=== PATIENT | female | born 1990 | race Caucasian/White ===

== ENCOUNTER 2017-10-11 18:02 | Emergency (ER) | payer SELFPAY ==
[~2017-10-11] VITALS: Ht 165.1 cm; Wt 97.9 kg
[~2017-10-11 18:02] MED LIST: DOXY100T PO; MOTR200T PO; ONDA1TAB16 PO; PERC10TA27 PO; ZOLO25TA PO
[2017-10-11 18:12] VITALS: PULSE 98; RESP 16; TEMP 97.8; O2SAT 99
[2017-10-11] MEDS ORDERED: METH10TA PO (18:33)
[2017-10-11] MEDS ORDERED: IBUP1TAB7 PO (18:40)
[2017-10-11] MEDS ORDERED: MAGICPED SWISH-SPIT (18:40)
[2017-10-11] MEDS ORDERED: CLIN300C5 PO (18:40)
[2017-10-11] MEDS ORDERED: CLINDAMYCIN 150 MG CAP PO ONE (18:45)
[2017-10-11] MEDS ORDERED: IBUPROFEN 800 MG TAB PO ONE (18:45)
--- NOTE | 2017-10-11 18:46 | PD ---
HPI Chief Complaint: Oral / Dental Pain or Problem Time Seen by Provider: 18:27 Travel History International Travel<30 days: No Contact w/Intl Traveler<30days: No Traveled to known affect area: No History of Present Illness HPI 26-year-old female presents emergency department for evaluation of right upper and lower tooth pain that started 3 days ago. Patient states he has been using multiple onvx-wzm-ofrjdjc medications and warm saline but her pain is not resolved and believe she needs antibiotics. Says that she recently got over some left-sided tooth pain with irrigation. She denies any fevers or chills. Denies excessive swelling. Denies any unusual taste. 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 Says that she is due to see her dentist within 2 weeks. She has no other complaints today. PFSH Past Medical History ADHD: No Depression: Yes Cancer: No Diminished Hearing: No Psychiatric: Yes (DEPRESSION) Immunizations Current: Yes Migraines: No Seizures: No Thyroid Disease: No Ulcer: No ?: Not LMP: 09/27/17 : 5 Para: 2 Miscarriage: 3 Dilation and Curettage (D&C): Yes (X3) Past Surgical History Appendectomy: No Cholecystectomy: Yes Gynecologic Surgery: Yes (D&C 2012) Oral Surgery: Yes (TONSILLECTOMY 2004) Tonsillectomy: Yes (2004) Other Surgery: Yes Social History Alcohol Use: No Tobacco Use: Yes (1 PPD) Substance Use: Yes Allergies-Medications (Allergen,Severity, Reaction): Coded Allergies: meperidine (Unverified Allergy, Severe, Swelling, 10/11/17) penicillin G (Unverified Allergy, Severe, SWELLING, DIFFICULTY BREATHING, 10/11/17) Sulfa (Sulfonamide Antibiotics) (Unverified Allergy, Intermediate, Hives, 10/11/17) Reported Meds & Prescriptions Reported Meds & Active Scripts Active Magic Mouthwash Pediatric/Adult Liq (Lidocaine/Diphenhydr/Alum/Mg/Simeth) 60 Ml Susp 5 Ml SWISH-SPIT ACHS Each 5mL contains: Diphenydramine 4.5mg, Viscous Lidocaine 2% 10mg, Maalox Advanced Regular Strength 2.7ml Equal parts please. Ibuprofen 800 Mg Tab 800 Mg PO Q8H PRN 7 Days Clindamycin (Clindamycin HCl) 300 Mg Cap 300 Mg PO TID Reported Methadone (Methadone HCl) 10 Mg Tab 10 Mg PO DAILY Review of Systems Except as stated in HPI: all other systems reviewed are Neg Physical Exam Narrative GENERAL: Well-nourished, well-developed patient. SKIN: Focused skin assessment warm/dry. HEAD: Normocephalic. EYES: No scleral icterus. No injection or drainage. Poor dentition. Erosions of the first bicuspid of the right upper and second bicuspid of the right lower jaw. No areas of fluctuance. Tenderness palpation to the gumline. NECK: Supple, trachea midline. No JVD or lymphadenopathy. No meningismus CARDIOVASCULAR: Regular rate and rhythm without murmurs, gallops, or rubs. RESPIRATORY: Breath sounds equal bilaterally. No accessory muscle use. MUSCULOSKELETAL: No cyanosis, or edema. BACK: Nontender without obvious deformity. No CVA tenderness. Data Data Last Documented VS Vital Signs Date Time Temp Pulse Resp B/P (MAP) Pulse Ox O2 Delivery O2 Flow Rate FiO2 10/11/17 18:12 97.8 98 16 99 Orders Orders Clindamycin (Cleocin) (10/11/17 18:45) Ibuprofen (Motrin) (10/11/17 18:45) Ed Discharge Order (10/11/17 18:46) [facility] Medical Decision Making Medical Screen Exam Complete: Yes Emergency Medical Condition: Yes Differential Diagnosis Dental infection, pulpitis, dental abscess Narrative Course 26-year-old female presents emergency department evaluation of tooth pain that started 3 days ago. Physical exam findings consistent with a dental infection. Tooth erosions present both upper and lower right jaw. No areas of fluctuance. No TTP to jaw line. Clindamycin and ibuprofen administered emergency department. Patient will be discharged with ibuprofen, clindamycin, and Magic mouthwash. Advised that she should follow-up with her dentist as discussed. Follow-up the primary care physician within 2-3 days. Return to the ED for worsening persistent symptoms. Diagnosis Primary Impression: Dental infection Referrals: Dentist Additional Instructions: Take all medication as prescribed. You may continue your saline rinses. Scripts Ejrlwqmnsppphym-Hsremewpw-Voy-Alum-Simeth Liq (Magic Mouthwash Pediatric/Adult Liq) 60 Ml Susp 5 ML SWISH-SPIT ACHS for Mouth sores, #60 ML 0 Refills Each 5mL contains: Diphenydramine 4.5mg, Viscous Lidocaine 2% 10mg, Maalox Advanced Regular Strength 2.7ml Equal parts please. Prov: Brynn Kaba MD 10/11/17 Ibuprofen (Ibuprofen) 800 Mg Tab 800 MG PO Q8H Y for Pain/Inflammation for 7 Days, #21 TAB 0 Refills Prov: Brynn Kaba MD 10/11/17 Clindamycin (Clindamycin) 300 Mg Cap 300 MG PO TID for Infection, #21 CAP 0 Refills Prov: Brynn Kaba MD 10/11/17 Disposition: 01 DISCHARGE HOME Condition: Stable Vanda Darling October 11, 2017 18:46
== END 2017-10-11 19:12 | disposition home or self-care (01) ==
LOC: PHEFT 18:02
DX: K04.7 Periapical abscess without sinus (principal); F32.9 Major depressive disorder, single episode, unspecified; F17.200 Nicotine dependence, unspecified, uncomplicated; Z88.0 Allergy status to penicillin; Z88.2 Allergy status to sulfonamides; Z88.8 Allergy status to other drugs, medicaments and biological substances; Z79.899 Other long term (current) drug therapy
CPT/HCPCS: 99283